=== PATIENT | male | born 1995 | race Caucasian/White ===

== ENCOUNTER 2017-08-19 09:01 | Day surgery (SDC) | payer OTHER ==
[2017-08-19] MEDS ORDERED: Propofol 10 mg/ml Inj (20 ML) ONE ×2 (09:47→10:17)
--- NOTE | 2017-08-19 09:49 | CP.SDSHP ---
Same Day Surgery H & P - History Proposed Procedure: Colonoscopy Pre-Op Diagnosis: Chronic constipation, abdominal pain - Previous Medical/Surgical History Pain: 0. No Pain Previous Surgical History: No prior surgical history - Allergies Allergies: Allergies dog dander Allergy (Verified 08/16/17 13:59) ITCHING - Current Medications Current Medications: Miralax, Benefiber - Physical Exam Vital Signs: Vital Signs 08/19/17 08/19/17 09:12 09:36 Temperature 98.6 F 98.6 F Pulse Rate 90 90 Respiratory 20 20 Rate Blood Pressure 135/75 135/75 O2 Sat by Pulse 97 97 Oximetry Mental Status: Alert & Oriented x3 Neuro: WNL Heart: WNL Lungs: WNL GI: WNL - {Optional Preform as Required} Abdomen: WNL Integument: WNL - Impression Impression: Abdominal pain, constipation - Plan for colonoscopy today Pt. Evaluated Today:Candidate for Anesthesia & Procedure: Yes - Date & Time Date: 08/19/17 Time: 09:45 Short Stay Discharge - Short Stay Discharge Admitting Diagnosis/Reason for Visit: CONSTIPATION Disposition: HOME/ ROUTINE
[2017-08-19] MEDS ORDERED: Lidocaine Hydrochloride 5 ML INJ ONE (10:17)
[2017-08-19 11:01] VITALS: TEMP 98.2; O2SAT 100
[2017-08-19 11:39] VITALS: BP 120/70; PULSE 86; RESP 16
== END 2017-08-19 11:45 | disposition home or self-care (01) ==
LOC: C.ENDO 09:01
PROVIDERS: ATTEND Internal Medicine Gastroenterology
DX: K52.9 Noninfective gastroenteritis and colitis, unspecified (principal); K59.00 Constipation, unspecified; K50.00 Crohn's disease of small intestine without complications; K64.9 Unspecified hemorrhoids
CPT/HCPCS: 45378; 88305; J2704